=== PATIENT | female | born 1990 | race African-American/Black ===

== ENCOUNTER 2016-12-21 05:13 | Emergency (ER) ==
[2016-12-21 05:35] VITALS: BP 122/75; TEMP 99.3; BMI 43.9
[2016-12-21] MEDS ORDERED: PHENERGAN 25 MG/ML VIAL 25 MG in SODIUM CHLORIDE 50 ML IV STA (05:58)
[2016-12-21] MEDS ORDERED: SODIUM CHLORIDE 1,000 ML IV STA (05:58)
--- NOTE | 2016-12-21 06:03 | ED.PDOC ---
General ED Provider: Dr. KHRIS LUNA Chief Complaint: Nausea/Vomiting Stated Complaint: Patient complains of nausea vomiting and diarrhea for the past two days. Time Seen by Physician: 05:55 Mode of Arrival: Walk-In Information Source: Patient Exam Limitations: No limitations Nursing and Triage Documentation Reviewed and Agree: Yes GI Complaint Exam - Vomiting/Diarrhea Complaint/Exam Onset/Duration: 2 days Symptoms Are: Still present Episodes of Vomiting over last 24 Hours: 4 Episodes of Diarrhea Over Last 24 Hours: 5 Initial Severity: Moderate Current Severity: Severe Character of Vomiting: Reports: Non-bilious Character of Diarrhea: Reports: Watery Aggravating: Reports: Food Alleviating: Reports: None Associated Signs and Symptoms: Reports: Dizziness, Light-headedness, Cramping Last Oral Intake: 1 hour Last Bowel Movement: 1 hour Menses: Regular Recent Positive Test: No Use of Oral Contraceptives: No Use of Depoprovera: No Non-GI Risk Factors: Reports: None Surgical Obstruction Risk Factors: Denies: Bilious emesis, Projectile emesis, Colicky abdominal pain, Prior abdominal surgery Related Surgical History: Reports: Cholecystectomy Abdominal Findings: Present: None [place] Respirations Present: No Differential Diagnoses: Bowel Obstruction, Gastritis, Viral Gastroenteritis, Bacterial Gastroenteritis, , UTI Review of Systems - Review Of Systems Constitutional: Reports: Loss of appetite Eyes: Reports: No symptoms Ears, Nose, Mouth, Throat: Reports: No symptoms Respiratory: Reports: No symptoms Cardiac: Reports: No symptoms GI: Reports: Abdominal pain (diffuse), Diarrhea, Nausea, Poor appetite, Poor fluid intake, Vomiting : Reports: No symptoms Musculoskeletal: Reports: Back pain Skin: Reports: No symptoms Neurological: Reports: No symptoms Endocrine: Reports: No symptoms Hematologic/Lymphatic: Reports: No symptoms All Other Systems: Reviewed and Negative Past Medical History - Past Medical History Previously Healthy: No Endocrine: Reports: None Cardiovascular: Reports: None Respiratory: Reports: None Hematological: Reports: None Gastrointestinal: Reports: GERD Genitourinary: Reports: UTI Neuro/Psych: Reports: Anxiety Musculoskeletal: Reports: None Cancer: Reports: None Last Menstrual Period: 8-6-17 - Surgical History General Surgical History: Reports: Cholecystectomy - Family History Family History: Reports: None - Social History Smoking Status: Never smoker Hx Substance Use: No Alcohol Screening: Occasionally - Immunizations Tetanus Shot up to Date: Yes Physical Exam - Physical Exam Appearance: Ill-appearing, Obese Ill-appearing: Moderate Pain Distress: Mild Eyes: REGGIE, EOMI, Conjunctiva clear Neck: Supple Respiratory: Airway patent, Breath sounds clear, Breath sounds equal, Respirations nonlabored Cardiovascular: Pulses normal, Tachycardia GI/: Soft, Nontender, Bowel sounds normal Musculoskeletal: Normal strength, ROM intact, No edema, No calf tenderness Skin: Warm, Dry, Normal color Neurological: Sensation intact, Motor intact, Cranial nerves intact, Alert, Oriented Psychiatric: Anxious Critical Care Note - Critical Care Note Total Time (mins): 30 Course - Course Hematology/Chemistry: 12/21/16 06:20 12/21/16 06:20 Orders, Labs, Meds: Lab Review 12/21/16 12/21/16 05:40 06:20 WBC 7.63 RBC 4.97 Hgb 13.1 Hct 39.2 MCV 78.9 L MCH 26.4 L MCHC 33.4 RDW Coeff of Jenny 14.0 Plt Count 225 Immature Gran % (Auto) 0.4 Neut % (Auto) 75.9 Lymph % (Auto) 14.5 [place] % (Auto) 8.5 Eos % (Auto) 0.3 Baso % (Auto) 0.4 Immature Gran # (Auto) 0.0 Neut # 5.8 Lymph # 1.1 [place] # 0.7 Eos # 0.0 Baso # 0.0 Sodium 137 Potassium 3.8 Chloride 104 Carbon Dioxide 24 Anion Gap 12.8 BUN 8 Creatinine 0.76 Estimated GFR (MDRD) 113.00 BUN/Creatinine Ratio 10.52 Glucose 87 Calcium 9.2 Total Bilirubin 0.33 AST 22 ALT 32 Alkaline Phosphatase 98 Total Protein 7.4 Albumin 3.9 Globulin 3.5 Albumin/Globulin Ratio 1.11 Amylase 67 Lipase 43 Urine Color Yellow Urine Clarity Clear Urine pH 5.5 Ur Specific [place] 1.020 Urine Protein Negative Urine Glucose (UA) Negative Urine Ketones Negative Urine Blood 1+ Urine Nitrite Negative Urine Bilirubin Negative Urine Urobilinogen 0.2 Ur Leukocyte Esterase Negative Urine Microscopic RBC 5-10 Ur Squamous Epith Cells 20-30 Urine Test Negative Orders Category Date Time Status ED IV/MEDIPORT/POWERPORT .ONCE EMERGENCY 12/21/16 05:58 Active AMYLASE Stat LAB 12/21/16 06:20 Completed CBC W/ AUTO DIFF Stat LAB 12/21/16 06:20 Completed COMPREHENSIVE METABOLIC PANEL Stat LAB 12/21/16 06:20 Completed LIPASE Stat LAB 12/21/16 06:20 Completed URINALYSIS C & S IF INDICATED Stat LAB 12/21/16 05:40 Completed URINE Stat LAB 12/21/16 05:40 Completed 0.9 % Sodium Chloride [Saline Flush] MEDS 12/21/16 05:58 Ordered 1 syr IVF PRN PRN Promethazine HCl [Phenergan 25 mg/ml Vial] MEDS 12/21/16 06:09 Discontinued 25 mg .ROUTE .STK-MED ONE Promethazine HCl [Phenergan 25 mg/ml Vial] 25 mg MEDS 12/21/16 05:58 Discontinued 0.9 % Sodium Chloride [Sodium Chloride] 50 ml IV ONCE Sodium Chloride 0.9% [Sodium Chloride] 1,000 ml MEDS 12/21/16 05:58 Discontinued IV BOLUS Medications Generic Name Dose Route Start Last Admin Trade Name Freq PRN Reason Stop Dose Admin Sodium Chloride 1 syr 12/21/16 05:58 12/21/16 06:27 Saline Flush IVF 1 syr PRN PRN Administration To flush IV Discontinued Medications Generic Name Dose Route Start Last Admin Trade Name Freq PRN Reason Stop Dose Admin Promethazine HCl 25 mg/ Sodium 51 mls @ 75 mls/hr 12/21/16 05:58 12/21/16 06: 29 Chloride IV 12/21/16 06:38 75 mls/hr ONCE STA Administration Sodium Chloride 1,000 mls @ 1,000 mls/hr 12/21/16 05:58 12/21/16 06:27 Sodium Chloride IV 12/21/16 06:57 1,000 mls/hr BOLUS STA Administration Vital Signs: Temp Pulse Resp BP Pulse Ox 12/21/16 05:14 99.3 F 115 H 20 122/75 95 Departure - Departure Time of Disposition: 06:59 Disposition: HOME SELF-CARE Discharge Problem: Viral gastroenteritis Instructions: Gastroenteritis (ED) Condition: Fair Pt referred to PMD for follow-up: Yes Additional Instructions: Push fluids Take Nausea medications as prescribed Follow up with PCP in 3 days Prescriptions: Promethazine HCl [Phenergan Tab] 25 mg PO Q6H PRN #15 tablet PRN Reason: Nausea / Vomiting Allergies/Adverse Reactions: Allergies No Known Allergies Allergy (Verified 08/19/17 05:34) Home Medications: Ambulatory Orders Promethazine HCl [Phenergan Tab] 25 mg PO Q6H PRN #15 tablet 12/21/16 Disposition Discussed With: Patient, Family
[2016-12-21] MEDS ORDERED: PHENERGAN 25 MG/ML VIAL ONE (06:09)
[2016-12-21 06:26] LABS: BASOPHILS % (AUTO) 0.4 % (0.0-3.0); EOSINOPHILS % (AUTO) 0.3 % (0.0-7.0); HEMATOCRIT 39.2 % (37.0-47.0); HEMOGLOBIN 13.1 g/dl (12.0-16.0); IMMATURE GRANULOCYTE % (AUTO) 0.4 % (0.0-5.0); LYMPHOCYTES # (AUTO) 1.1 K/uL (0.60-3.4); LYMPHOCYTES % (AUTO) 14.5 (10.0-50.0); MEAN CORPUSCULAR HEMOGLOBIN 26.4 pg (27.0-31.0); MEAN CORPUSCULAR HGB CONC 33.4 (31.8-35.4); MEAN CORPUSCULAR VOLUME 78.9 fl (81.0-99.0); MONOCYTES # (AUTO) 0.7 K/uL (0.4-2.0); MONOCYTES % (AUTO) 8.5 (0-10); NEUTROPHILS # (AUTO) 5.8 K/ul (2.0-6.9); NEUTROPHILS % (AUTO) 75.9; PLATELET COUNT 225 10^3/uL (140-440); RED BLOOD COUNT 4.97 10^6/ul (4.20-5.40); WHITE BLOOD COUNT 7.63 K/ul (4.6-10.2)
[2016-12-21 06:30] LABS: BILIRUBIN,URINE Negative (NEGATIVE); KETONES,URINE Negative (NEGATIVE); LEUKOCYTE ESTERASE ,URINE Negative (NEGATIVE); NITRITE,URINE Negative (NEGATIVE); PH,URINE 5.5 (5-9); PROTEIN,URINE Negative (NEGATIVE); URINE, BLOOD 1+ (NEGATIVE)
[2016-12-21 06:31] LABS: URINE PREGNANCY INTERNAL QC INTERNAL QC VALID
[2016-12-21 06:34] LABS: ADD URINE MICROSCOPIC YES
[2016-12-21 06:47] LABS: ALBUMIN 3.9 g/dL (3.4-5.0); ALBUMIN/GLOBULIN RATIO 1.11; ANION GAP 12.8; BILIRUBIN,TOTAL 0.33 mg/dL (0.00-1.20); BUN/CREATININE RATIO 10.52; CALCIUM 9.2 mg/dL (8.2-10.2); CREATININE 0.76 mg/dL (0.60-1.30); POTASSIUM 3.8 mmol/L (3.5-5.10); TOTAL PROTEIN 7.4 g/dL (6.4-8.2)
== END 2016-12-21 08:15 | disposition home or self-care (01) ==
LOC: ED 05:13
DX: A08.4 Viral intestinal infection, unspecified (principal)
CPT/HCPCS: 36415; 80053; 81001; 81025; 82150; 83690; 85025; 96361; 96365; 99283